=== PATIENT | female | born 1995 | race Caucasian/White ===

== ENCOUNTER 2020-12-10 21:19 | Emergency (ER) | payer SELFPAY ==
[~2020-12-10] VITALS: Ht 165.1 cm; Wt 59.1 kg
[2020-12-10 21:21] VITALS: BP 126/79
[2020-12-10] MEDS ORDERED: ALBU8HFA PO (23:09)
== END 2020-12-10 23:20 | disposition home or self-care (01) ==
LOC: ER 21:19
DX: R06.02 Shortness of breath (principal); R07.89 Other chest pain; R05 Cough; R06.2 Wheezing; Z72.89 Other problems related to lifestyle; Z79.899 Other long term (current) drug therapy
CPT/HCPCS: 99283

== ENCOUNTER 2025-01-07 20:35 | Emergency (ER) | payer BC ==
[~2025-01-07] VITALS: Ht 162.6 cm; Wt 65.0 kg
--- NOTE | 2025-01-07 20:44 | ELECTROCARDIOGRAPH REPORT ---
[facility] Test Date: 2025-01-07 Test Time: 20:42:01 Pat Name: SIVAKUMAR HENDRICKS Department: EMERGENCY ROOM Room: Gender: F Medical Engineer: AARON : 1995 Requested By: DAVIDE RIOS Order Number: [id number] Reading MD: Measurements Intervals Wallace Rate: 70 P: 55 MA: 160 QRS: 60 QRSD: 99 T: 23 QT: 410 QTc: 443 Interpretive Statements Sinus rhythm Probable left atrial enlargement RSR' in V1 or V2, probably normal variant Nonspecific T abnormalities, anterior leads Baseline wander in lead(s) V6 Please click the below link to view image of tracing.
[2025-01-07 20:45] VITALS: BP 117/78; PULSE 75; RESP 18; O2SAT 99
--- NOTE | 2025-01-07 23:20 | RADIOLOGY REPORT ---
Clinical History CP Comparison None Technique: single view chest Without Contrast SIVAKUMAR HENDRICKS, [id number] FINDINGS: Trachea is midline, heart size normal, cardiomediastinal silhouette unremarkable. There is no pneumonia or pulmonary vascular congestion, no pneumothorax, no evidence of pleural or pe ricardial effusion. Osseous structures are unremarkable on this single image. IMPRESSION: 1. No evidence of acute cardiopulmonary disease on this single image. Consider follow-up PA and lat eral views and/or chest CT as clinically indicated. This report was electronically signed by Raymond Merrill MD on 01/07/2025 11:16:49 PM.
--- NOTE | 2025-01-07 23:28 | Physician Documentation ---
History of Present Illness ~ Chief Complaint: Chest Wall Pain Stated Complaint: HEART PALPS/CP/SOB Time Seen by MD: 23:20 Primary Medical Doctor: NONE HPI Patient presents to the emergency room with left-sided chest pain. Pain initiated when she was making some cases ideas for her children. Pain radiating into her neck and epigastric area. History of heartburn when she was . Child is 3-month-old. She denies one-sided leg pain. Patient's pain has significantly improved but still has some tenderness to palpation to her left chest wall. She does not smoke and denies history of high blood pressure cholesterol or diabetes. She denies first-degree relative with heart disease. Pain exacerbated with palpation and inspiration. Relieved by nothing Medication Reconciliation Allergies: Coded Allergies: No Known Allergies (Unverified , 07/04/16) Past Medical History Past Medical History: No Pertinent History Past Surgical History: no surgical history Alcohol Use: Occasionally Drug Use: none Lives with: Mother Review of Systems ROS All review of systems negative except as per HPI Physical Exam Vital Signs: Temperature: 98.2, Source: Temporal, Heart Rate: 75, Respiratory Rate: 18, BP: 117/78, Pulse Oximetry: 99, Weight: 65.000 Oxygen Flow Rate: 0 Physical Exam General: Patient is awake, alert, oriented x4 in no acute distress and well appearing.~ Head: Normocephalic and atraumatic. Eyes: Conjunctival normal. EOMI. PERRL. ENT: Mucous membranes moist. Neck: Supple, trachea is midline. Chest: Clear to auscultation bilaterally without rales, rhonchi, or wheezes. There is no accessory muscle use or retractions. Tenderness to palpation to left upper chest wall Cardiac: RRR without murmurs, gallops, or rubs. Extremities: Normal strength. Normal range of motion. No deformities or edema. No calf tenderness to palpation Progress Results/Orders Results/Orders Orders - GEORGE FALK MD Chest,Single View (01/07/25 20:55) Completed Orders - GEORGE FALK MD Electrocardiogram (01/07/25 20:40) Chest,Single View (01/07/25 20:55) Vital Signs 01/07/25 20:45 Temp 98.2 Pulse 75 Resp 18 B/P (MAP) 117/78 Pulse Ox 99 O2 Flow Rate 0 EKG/XRAY/CT/US/VASC/MRI EKG : Additional Comment EKG interpreted by myself shows time of 2041, rate 70, sinus rhythm, normal axis, no ST changes T-wave inversion leads V1 and V2 Chest X-Ray : Additional Comments Exam: CHEST,SINGLE VIEW Clinical History CP Comparison None Technique: single view chest Without Contrast SIVAKUMAR HENDRICKS, [id number] FINDINGS: Trachea is midline, heart size normal, cardiomediastinal silhouette unremarkable. There is no pneumonia or pulmonary vascular congestion, no pneumothorax, no evidence of pleural or pericardial effusion. Osseous structures are unremarkable on this single image. IMPRESSION: 1. No evidence of acute cardiopulmonary disease on this single image. Consider follow-up PA and lateral views and/or chest CT as clinically indicated. This report was electronically signed by Raymond Merrill MD on 01/07/2025 11:16:49 PM. Medical Decision Making Findings Patient presented to the emergency room for evaluation of chest pain as per HPI. Differentials include but are not limited to ACS, pulmonary embolism, aortic pathology, pneumothorax therefore EKG performed which was reassuring as was chest x-ray. Troponin ordered however patient is declining as she needs to get home to feed her . Had long discussion with her regarding the heart score and how I am unable to calculated without a troponin. Patient is considered low risk even if her troponin was elevated. Chest pain is atypical in his improved spontaneously. No calf tenderness no hypoxia or tachycardia with improving symptoms and he had not feel patient is suffering from pulmonary embolism or acute aortic pathology. The need to follow up with her doctor discussed as well as ER precautions. Departure Disposition: HOME / SELF CARE / HOMELESS Impression: Primary Impression: Chest pain Condition: Stable Discharge Instructions: Nonspecific Chest Pain, Adult Referrals: NO PRIMARY CARE PROVIDER (PCP) Education Educated: Patient Educated regarding: diagnosis, treatment, need for follow up Signature Scribe Signature: No scribe Attestation: The note accurately reflects work and decisions made by me.George Falk MD 01/07/25 23:33 GEORGE FALK MD January 07, 2025 23:28
[2025-01-07 23:41] VITALS: TEMP 98.2
== END 2025-01-07 23:42 | disposition home or self-care (01) ==
LOC: ER 20:37
DX: R07.89 Other chest pain (principal); M54.2 Cervicalgia
CPT/HCPCS: 71045; 93005; 99283